=== PATIENT | female | born 1995 | race Caucasian/White ===

== ENCOUNTER 2022-09-12 15:41 | Outpatient (CLI) | payer OTHER, SELFPAY ==
--- NOTE | ~2022-09-12 | XR_ITS ---
EXAMINATION:[id number] DATE: 09/12/2022 16:17 INDICATION: Neck pain extending into both shoulders TECHNIQUE: AP, lateral, lateral swimmers and odontoid views of the cervical spine are provided. COMPARISON: None FINDINGS: Tracheostomy normal cervical lordosis. Odontoid is intact. Normal atlantoaxial interval. Vertebral b charlie heights are normal. Disc spaces are normal. No evident facet or uncovertebral osteoarthritis. Pre vertebral soft tissues are normal. Visualized apices of lungs are clear. IMPRESSION: 1. Straightening of the normal cervical lordosis which could be positional or due to muscle spasm. Ot herwise unremarkable cervical spine radiographs. Reviewed, dictated and finalized at location A. MANAGER IMPRESSION: 1. Straightening of the normal cervical lordosis which could be positional or d ue to muscle spasm. Otherwise unremarkable cervical spine radiographs.
== END 2022-09-12 15:42 | disposition home or self-care (01) ==
PROVIDERS: PCP Physician Assistant; Visit Provider Physician Assistant
DX: M54.2 Cervicalgia (principal)
CPT/HCPCS: 72040